=== PATIENT | female | born 1945 | race Caucasian/White ===

== ENCOUNTER → 2018-06-20 | Outpatient (CLI) | payer MEDICARE, OTHER ==
--- NOTE | 2018-06-20 13:47 | RADIOLOGY REPORT (SQ) ---
EXAM DESCRIPTION: MRI HEAD WITHOUT COMPLETED DATE/TIME: 06/20/2018 1:00 pm REASON FOR STUDY: MIGRAINES (G43.009) G43.009 MIGRAINE W/O AURA, NOT INTRACTABLE, W/O STATUS MIGRA COMPARISON: None. TECHNIQUE: Multiplanar imaging includes non-contrasted T1, T2, FLAIR, and Diffusion with ADC map seq uences. Images stored on PACS. LIMITATIONS: None. FINDINGS: ANATOMY: No anomalies. Normal vascular flow voids. Pituitary fossa normal. CSF SPACES: Normal in size and contour. No hemorrhage. CEREBRUM: A few high-signal intensity lesions scattered throughout the white matter on FLAIR imaging with distribution suggesting chronic micro-vascular ischemic change. Sulci and gyri normal in size a nd contour. No evidence of hemorrhage, mass or extraaxial fluid collection. POSTERIOR FOSSA: No signal alteration. No hemorrhage. No edema, masses or mass effect. Internal oliver tory canals, cerebello-pontine angles, mastoids normal. DIFFUSION: Negative for acute or sub-acute infarction. ORBITS: No masses. Globes normal. PARANASAL SINUSES: Marked chronic ethmoid and sphenoid sinus disease. OTHER: No other significant finding. IMPRESSION: MINIMAL MICROVASCULAR ISCHEMIC CHANGE. Marked chronic ethmoid and sphenoid sinus disease. EVIDENCE OF ACUTE STROKE: NO. TECHNICAL DOCUMENTATION: JOB ID: [id number] [employer]- All Rights Reserved Reading location - IP/workstation name: [email or web address]
== END ==
LOC: RAD 12:16
PROVIDERS: ATTEND Physician Assistant
DX: G43.009 Migraine without aura, not intractable, without status migrainosus (principal)
CPT/HCPCS: 70551

== ENCOUNTER → 2019-10-04 | Outpatient (CLI) | payer MEDICARE, OTHER ==
--- NOTE | 2019-10-04 13:37 | RADIOLOGY REPORT (SQ) ---
EXAM DESCRIPTION: SHOULDER LEFT 2 OR MORE VIEWS IMAGES COMPLETED DATE/TIME: 10/04/2019 1:21 pm REASON FOR STUDY: OTHER SHOULDER LESIONS, LEFT SHOULDER M75.82 OTHER SHOULDER LESIONS, LEFT SHOULDE R COMPARISON: None. NUMBER OF VIEWS: Three views. TECHNIQUE: Internal rotation, external rotation, and Y view images acquired of the left shoulder. LIMITATIONS: None. FINDINGS: MINERALIZATION: Normal. BONES: No acute fracture. No worrisome bone lesions. JOINTS: No dislocation. VISUALIZED LUNGS AND RIBS: No pneumothorax. No rib fracture. SOFT TISSUES: No radiopaque foreign body. OTHER: No other significant finding. IMPRESSION: NEGATIVE STUDY OF THE LEFT SHOULDER. NO RADIOGRAPHIC EVIDENCE OF ACUTE INJURY. TECHNICAL DOCUMENTATION: JOB ID: [id number] 2010 [employer]- All Rights Reserved Reading location - IP/workstation name: [email or web address]
== END ==
LOC: OD 13:09
PROVIDERS: ATTEND Physician Assistant
DX: M75.82 Other shoulder lesions, left shoulder (principal)

== ENCOUNTER 2020-06-12 05:22 | Day surgery (SDC) | payer MEDICARE, OTHER ==
[2020-06-07 10:30] LABS: HEMATOCRIT 37.4 % (36.0-47.0); MEAN CORPUSCULAR HEMOGLOBIN 26.7 pg (27.0-33.4); MEAN CORPUSCULAR HGB CONC 32.2 g/dL (32.0-36.0); MEAN CORPUSCULAR VOLUME 83 fl (80-97); PLATELET COUNT 329 10^3/uL (150-450); RED BLOOD COUNT 4.51 10^6/uL (3.72-5.28); WHITE BLOOD COUNT 9.5 10^3/uL (4.0-10.5)
[2020-06-07 10:39] LABS: APPEARANCE,URINE CLEAR; BILIRUBIN,URINE NEGATIVE (NEGATIVE); COLOR,URINE COLORLESS; GLUCOSE, URINE NEGATIVE (NEGATIVE); KETONES,URINE NEGATIVE (NEGATIVE); LEUKOCYTE ESTERASE,URINE TRACE (NEGATIVE); NITRITE,URINE NEGATIVE (NEGATIVE); PROTEIN,URINE NEGATIVE (NEGATIVE); URINE SPECIFIC GRAVITY 1.006; UROBILINOGEN,URINE NEGATIVE mg/dL (<2.0)
[2020-06-07 10:55] LABS: ANION GAP 8 (5-19); BLOOD UREA NITROGEN 24 mg/dL (7-20); CALCIUM 9.3 mg/dL (8.4-10.2); CARBON DIOXIDE 26 mmol/L (22-30); CHLORIDE 108 mmol/L (98-107); GLUCOSE 99 mg/dL (75-110); POTASSIUM 4.1 mmol/L (3.6-5.0)
[2020-06-07 11:02] LABS: ALCOHOL < 10 mg/dL (NONE DETECTED)
[2020-06-07 11:08] LABS: URINE AMPHETAMINES SCREEN NEGATIVE; URINE BARBITURATES SCREEN NEGATIVE; URINE BENZODIAZEPINES SCREEN NEGATIVE; URINE COCAINE SCREEN NEGATIVE; URINE MARIJUANA (THC) SCREEN NEGATIVE; URINE METHADONE SCREEN NEGATIVE; URINE PHENCYCLIDINE SCREEN NEGATIVE
--- NOTE | 2020-06-07 11:55 | EKG REPORT ---
SEVERITY:- ABNORMAL ECG - SINUS RHYTHM LEFT ATRIAL ABNORMALITY LVH WITH SECONDARY REPOLARIZATION ABNORMALITY ANTERIOR Q WAVES, POSSIBLY DUE TO LVH VS OLD ANTEROSEPTAL VT : Confirmed by: Mitchel Martinez MD 07-Jun-2020 11:55:04
--- NOTE | 2020-06-07 13:13 | RADIOLOGY REPORT (SQ) ---
EXAM DESCRIPTION: CHEST 2 VIEWS IMAGES COMPLETED DATE/TIME: 06/07/2020 12:37 pm REASON FOR STUDY: PRE OP TESTING COMPARISON: 2007 EXAM PARAMETERS: NUMBER OF VIEWS: two views TECHNIQUE: Digital Frontal and Lateral radiographic views of the chest acquired. RADIATION DOSE: NA LIMITATIONS: none FINDINGS: LUNGS AND PLEURA: Mild chronic interstitial changes. No acute infiltrate or effusion. No mass. MEDIASTINUM AND HILAR STRUCTURES: No masses or contour abnormalities. HEART AND VASCULAR STRUCTURES: Heart normal size. No evidence for failure. BONES: No acute findings. HARDWARE: None in the chest. OTHER: No other significant finding. IMPRESSION: Chronic lung changes with no acute cardiopulmonary findings. TECHNICAL DOCUMENTATION: JOB ID: [id number] 2010 [employer]- All Rights Reserved Reading location - IP/workstation name: [email or web address]
[~2020-06-12 05:22] MED LIST: CEFAZOLIN 2 GM/D5W RTU 2 GM/50 ML RTUPB IV PRN
[2020-06-12] MEDS ORDERED: CEFAZOLIN 2 GM/D5W RTU 2 GM/50 ML RTUPB IV ONE (05:55)
[2020-06-12] MEDS ORDERED: FENTANYL CITRATE INJ/PF 100 MCG/2 ML AMPUL ONE (06:44)
[2020-06-12] MEDS ORDERED: MIDAZOLAM 2 MG/2 ML INJ ONE (06:44)
[2020-06-12] MEDS ORDERED: HYDROMORPHONE HCL INJ/PF 2 MG/ML AMPULE ONE (06:44)
[2020-06-12] MEDS ORDERED: LIDOCAINE 2% INJ (20 MG/ML) 20 ML MDV ONE (06:45)
[2020-06-12] MEDS ORDERED: PROPOFOL INJ 200 MG/20 ML VIAL IV ONE (06:45)
[2020-06-12] MEDS ORDERED: BUPIVACAINE HCL 0.5 % INJ/PF 30 ML SDV ONE (07:10)
[2020-06-12] MEDS ORDERED: BUPIVACAINE INJ/PF LIPOSOME/PF 266 MG/20 ML SDV ONE (07:10)
[2020-06-12] MEDS ORDERED: HEPARIN SOD (PORCINE) 1,000 UNIT/ML 10 ML VIAL ONE (07:10)
[2020-06-12] MEDS ORDERED: ACETAMINOPHEN 1,000 MG/100 ML RTUPB IV ONE (07:21)
[2020-06-12] MEDS ORDERED: SUMATRIPTAN SUCCINATE INJ/PF 6 MG/0.5 ML SDV SUBCUT PRN (07:44)
[2020-06-12] MEDS ORDERED: CARVEDILOL PHOSPHATE 10 MG PO SCH (07:45)
[2020-06-12] MEDS ORDERED: EPHEDRINE SULFATE INJ 50 MG/1 ML AMPULE ONE (07:55)
[2020-06-12] MEDS ORDERED: BACITRACIN INJ 50,000 UNIT VIAL ONE (08:19)
[2020-06-12] MEDS ORDERED: MORPHINE SULFATE 10 MG/ML INJ IV PRN ×2 (08:31→11:35)
[2020-06-12] MEDS ORDERED: FENTANYL CITRATE INJ/PF 100 MCG/2 ML AMPUL IV PRN ×3 (08:31)
[2020-06-12] MEDS ORDERED: ONDANSETRON HCL INJ/PF 4 MG/2 ML SDV IV PRN ×2 (08:31→11:36)
[2020-06-12] MEDS ORDERED: DIPHENHYDRAMINE HCL 50 MG/ML VIAL IV PRN ×2 (08:31→11:36)
[2020-06-12] MEDS ORDERED: MEPERIDINE HCL/PF INJ 25 MG/1 ML DISP.SYRIN IV PRN (08:31)
[2020-06-12] MEDS ORDERED: VANCOMYCIN HCL INJ 1000 MG VIAL ONE ×2 (09:57→10:41)
[2020-06-12] MEDS ORDERED: (PENDING PHARMACY ID) (Losartan Potassium [Losartan Potassium] 100 MG Tablet) PO SCH (10:00)
[2020-06-12] MEDS ORDERED: PRAVASTATIN SODIUM 20 MG PO SCH (10:00)
--- NOTE | 2020-06-12 10:54 | Operative Report ---
Operative Report DATE OF SURGERY: 06/12/20 PREOPERATIVE DIAGNOSIS: L3-4 and L4-5 severe lumbar stenosis with neurogenic cl audication. L4-5 spondylolisthesis with lumbar radiculitis. Degenerative disc disease lumbar spine. Back pain POSTOPERATIVE DIAGNOSIS: L3-4 and L4-5 severe lumbar stenosis with neurogenic claudication. L4-5 spondylolisthesis with lumbar radiculitis. Degenerative disc disease lumbar spine. Back pain. Status post L3-4 and L4-5 central decompression and bilateral foraminotomies OPERATION: L3-4 and L4-5 central decompression and bilateral foraminotomies SURGEON: CRISSY SUMMERS 1ST DISC SANDER: JASON MARCUM ANESTHESIA: GA COMPLICATIONS: None ESTIMATED BLOOD LOSS: 450 cc of blood loss patient was given back 250 cc of Cell Saver PROCEDURE: The patient is brought into the room and placed under anesthesia and had a Moore catheter placed at the beginning of the case which is removed at the end of the case. The patient received 2 g of Ancef and a surgical timeout was performed. The patient was placed in the prone position on the Fredi table with a Chai frame attachment. The Chai frame was turned up to open up the interspaces posteriorly. Lateral C-arm fluoroscopy is used to noam the appropriate levels. After completion of prepping and draping having SCDs and a warming blanket placed on the patient already, a midline incision is carried down electrocautery was used to maintain hemostasis. The lumbodorsal fascia is incised on both sides of spinous processes down onto the lamina of L3 down to L5. The spinous processes of L3 and L4 are resected. Then the microscope was brought in under the microscope the bur is used to remove a significant part of the lamina and then regular and pneumatic Kerrisons are utilized to carry out central decompression and lateral recess decompression at L3-4 and L4-5. After carrying out the decompression the extent of the decompression was verified using nerve hooks and the lateral C-arm fluoroscopy to verify that L3- L5 was decompressed centrally. No epidural bleeders or cerebrospinal fluid leakage is noted. The wound is then irrigated with a liter of bacitracin irrigation. The wound is reapproximated the fascia with 0 Vicryl and then the subcu with 2-0 Vicryl in a subcuticular closure with 3-0 Monocryl. The wounds dressed in benzoin Steri- Strips 4 x 4 and tape. Please note this procedure could not have been done without the assistance of Jason Marcum working under the microscope carry out decompression and protecti ng the dura.
[2020-06-12] MEDS ORDERED: RINGERS SOLUTION,LACTATED 1,000 ML IV PRN (11:31)
[2020-06-12] MEDS ORDERED: ACETAMINOPHEN 325 MG TABLET PO PRN (11:35)
[2020-06-12] MEDS ORDERED: ACETAMINOPHEN SOLN 325 MG/10.15 ML UDCUP PO PRN (11:36)
[2020-06-12] MEDS ORDERED: PROMETHAZINE HCL 25 MG TABLET PO PRN (11:36)
[2020-06-12] MEDS ORDERED: PROMETHAZINE HCL INJ 25 MG/1 ML VIAL IM PRN (11:36)
[2020-06-12] MEDS ORDERED: ACETAMINOPHEN 650 MG SUPP.RECT PR PRN (11:36)
[2020-06-12] MEDS ORDERED: MAGNESIUM HYDROXIDE SUSP 30 ML UDCUP PO PRN (11:36)
[2020-06-12] MEDS ORDERED: DIPHENHYDRAMINE HCL 25 MG CAPSULE PO PRN (11:36)
[2020-06-12] MEDS ORDERED: METHOCARBAMOL 750 MG TABLET PO SCH (11:45)
[2020-06-12] MEDS ORDERED: METHOCARBAMOL 500 MG TABLET PO PRN (11:59)
--- NOTE | 2020-06-12 12:20 | RADIOLOGY REPORT (SQ) ---
EXAM DESCRIPTION: SPINE SINGLE VIEW; NO CHG FLUORO IMAGES COMPLETED DATE/TIME: 06/12/2020 10:56 am REASON FOR STUDY: LUMBAR DECOMPRESSION MULTIPLE LEVELS ASSISTED WITH FLUORO IN OR M48.00 SPINAL BENOIT NOSIS, SITE UNSPECIFIED M47.9 SPONDYLOSIS, UNSPECIFIED Z79.899 OTHER SNF (CURRENT) DRUG THERA PY COMPARISON: None. FLUOROSCOPY TIME: 0.3 minutes 1 images saved to PACS. TECHNIQUE: Intra-operative images acquired during surgical procedure to evaluate progress. NUMBER OF IMAGES: 1 LIMITATIONS: None. FINDINGS: Image from fluoro shows 2 instruments. 1 is directed toward the L3 vertebra and the other toward the L5 vertebra. IMPRESSION: Lumbar decompression with fluoro. Refer to operative note for further information. COMMENT: Quality ID [id number]: Final reports for procedures using fluoroscopy that document radiation exp osure indices, or exposure time and number of fluorographic images (if radiation exposure indices are not available) Please consult full operative report of the attending physician for description of the procedure. TECHNICAL DOCUMENTATION: JOB ID: [id number] 2010 [employer]- All Rights Reserved Reading location - IP/workstation name: [email or web address]
--- NOTE | 2020-06-12 12:20 | RADIOLOGY REPORT (SQ) ---
EXAM DESCRIPTION: SPINE SINGLE VIEW; NO CHG FLUORO IMAGES COMPLETED DATE/TIME: 06/12/2020 10:56 am REASON FOR STUDY: LUMBAR DECOMPRESSION MULTIPLE LEVELS ASSISTED WITH FLUORO IN OR M48.00 SPINAL BENOIT NOSIS, SITE UNSPECIFIED M47.9 SPONDYLOSIS, UNSPECIFIED Z79.899 OTHER INTERMEDIATE (CURRENT) DRUG THERA PY COMPARISON: None. FLUOROSCOPY TIME: 0.3 minutes 1 images saved to PACS. TECHNIQUE: Intra-operative images acquired during surgical procedure to evaluate progress. NUMBER OF IMAGES: 1 LIMITATIONS: None. FINDINGS: Image from fluoro shows 2 instruments. 1 is directed toward the L3 vertebra and the other toward the L5 vertebra. IMPRESSION: Lumbar decompression with fluoro. Refer to operative note for further information. COMMENT: Quality ID [id number]: Final reports for procedures using fluoroscopy that document radiation exp osure indices, or exposure time and number of fluorographic images (if radiation exposure indices are not available) Please consult full operative report of the attending physician for description of the procedure. TECHNICAL DOCUMENTATION: JOB ID: [id number] 2010 [employer]- All Rights Reserved Reading location - IP/workstation name: [email or web address]
[2020-06-12] MEDS: AMLODIPINE BESYLATE 5 MG TABLET PO SCH (13:15)
[2020-06-12] MEDS: LOSARTAN POTASSIUM 50 MG TABLET PO SCH (13:16)
[2020-06-12] MEDS ORDERED: METHOCARBAMOL INJ/PF 1000 MG/10 ML SDV IV ONE (14:00)
[2020-06-12] MEDS ORDERED: CEFAZOLIN 2 GM/D5W RTU 2 GM/50 ML RTUPB IV SCH (14:00)
[2020-06-12] MEDS ORDERED: ONDANSETRON HCL INJ/PF 4 MG/2 ML SDV ONE (14:29)
[2020-06-12] MEDS ORDERED: GLYCOPYRROLATE 1 MG/5 ML VIAL ONE (14:29)
[2020-06-12] MEDS ORDERED: PHENYLEPHRINE HCL INJ/PF 10 MG/1 ML SDV ONE (14:29)
[2020-06-12] MEDS ORDERED: ROCURONIUM BROMIDE INJ 50 MG/5 ML VIAL IV ONE (14:29)
[2020-06-12] MEDS ORDERED: DEXAMETHASONE SOD PHOSPHATE INJ 4 MG/1 ML VIAL ONE (14:29)
[2020-06-12] MEDS ORDERED: METHOCARBAMOL 750 MG TABLET PO PRN (15:34)
[2020-06-12] MEDS: FUROSEMIDE 20 MG TABLET PO SCH (15:37)
[2020-06-12] MEDS: ASPIRIN 81 MG TABLET, CHEWABLE PO SCH (15:37)
[2020-06-12] MEDS: HYDROXYCHLOROQUINE SULFATE 200 MG TABLET PO SCH ×2 (15:38→18:18)
[2020-06-12] MEDS: CEFAZOLIN SODIUM 2 GM in DEXTROSE 5%-WATER 100 ML IV SCH (16:01)
[2020-06-12] MEDS: SENNOSIDES/DOCUSATE 8.6-50 MG 1 EACH TABLET PO SCH (18:25)
[2020-06-12] MEDS: OXYCODONE HCL IR 5 MG TABLET PO PRN (19:33)
[2020-06-13] MEDS: CEFAZOLIN SODIUM 2 GM in DEXTROSE 5%-WATER 100 ML IV SCH (02:04)
[2020-06-13] MEDS: OXYCODONE HCL IR 5 MG TABLET PO PRN (06:15)
[2020-06-13 07:17] LABS: HEMATOCRIT 30.2 % (36.0-47.0); HEMOGLOBIN 9.7 g/dL (12.0-15.5); MEAN CORPUSCULAR HEMOGLOBIN 26.9 pg (27.0-33.4); MEAN CORPUSCULAR VOLUME 84 fl (80-97); PLATELET COUNT 269 10^3/uL (150-450); RED BLOOD COUNT 3.58 10^6/uL (3.72-5.28); RED CELL DISTRIBUTION WIDTH 15.1 % (11.5-14.0); WHITE BLOOD COUNT 10.5 10^3/uL (4.0-10.5)
[2020-06-13] MEDS: FUROSEMIDE 20 MG TABLET PO SCH (07:25)
[2020-06-13] MEDS: AMLODIPINE BESYLATE 5 MG TABLET PO SCH (09:43)
[2020-06-13] MEDS: LOSARTAN POTASSIUM 50 MG TABLET PO SCH (09:43)
[2020-06-13] MEDS: ASPIRIN 81 MG TABLET, CHEWABLE PO SCH (09:43)
[2020-06-13] MEDS: SENNOSIDES/DOCUSATE 8.6-50 MG 1 EACH TABLET PO SCH (09:43)
[2020-06-13] MEDS: HYDROXYCHLOROQUINE SULFATE 200 MG TABLET PO SCH (09:46)
[2020-06-13 10:10] VITALS: BP 129/59
--- NOTE | 2020-06-13 11:31 | PDOC DISCHARGE SUMMARY ---
General - Admit/Disc Date/PCP Admission Date/Primary Care Provider: 06/12/2020 Discharge Date: 06/13/20 - Discharge Diagnosis Final Diagnosis: Spinal stenosis L3-L5: S/P Lumbar decompression L3-L5 - Assessment Summary: Patient was admitted 06/12/2020 following Lumbar decompression, please see op note for details. - Additional Information Resuscitation Status: Full Code Discharge Diet: Regular Discharge Activity: No Driving, No Lifting Over 10 Pounds, No Lifting/Push/Pulling, No tub bath Referrals: CRISSY SUMMERS MD [ASSOCIATE] - 06/21/20 9:20 am Home Medications: Carvedilol Phosphate [Coreg CR 10 mg Ext. Release Capsule] 10 mg PO HSP PRN 12/21/12 Hydroxychloroquine Sulfate [Plaquenil 200 mg Tablet] 200 mg PO BID 12/21/12 Pravastatin Sodium [Pravachol] 20 mg PO DAILY 12/21/12 Sumatriptan Succinate [Imitrex] 6 mg SQ PRN PRN 12/21/12 Amlodipine Besylate [Norvasc 5 mg Tablet] 5 mg PO DAILY 06/11/20 Furosemide [Lasix 20 mg Tablet] 20 mg PO QAM 06/11/20 Losartan Potassium 100 mg PO DAILY 06/11/20 Aspirin 1 tab PO DAILY 06/12/20 Acetaminophen [Tylenol 650 mg Supp] 650 mg NM Q4HP PRN supp.rect 06/13/20 Methocarbamol [Robaxin 750 mg Tablet] 750 mg PO Q8HP PRN tablet 06/13/20 Normal Saline [Saline Flush 2.5 ml Monoject Prefil Syrin] 2.5 ml IV Q8 disp.syrin 06/13/20 Ondansetron HCl/Pf [Zofran Inj/Pf 4 mg/2 ml Sdv] 4 mg IV Q6HP PRN vial 06/13/20 Oxycodone HCl [Oxy-Ir 5 mg Tablet] 5 mg PO Q4HP PRN tablet 06/13/20 History of Present Illiness History of Present Illness: LUIS CARLOS LOPEZ is a 74 year old female Hospital Course Hospital Course: Patient was admited on 06/12/2020 following lumbar decompression, see op note for details. No complications were noted during the hospital course. patient was able to meet PT goals. Physical Exam Vital Signs: Temp Pulse Resp BP Pulse Ox 97.6 F 80 18 133/64 H 93 06/13/20 07:37 06/13/20 03:34 06/13/20 03:34 06/13/20 03:34 06/13/20 07:43 Intake & Output 06/12/20 06/13/20 06/14/20 06:59 06:59 06:59 Intake Total 0 3787 Output Total 650 Balance 0 3137 Weight 81.65 kg 75 kg General appearance: PRESENT: no acute distress, cooperative Ear exam: ABSENT: bleeding, drainage Mouth exam: PRESENT: moist Pulses: PRESENT: +2 pedal pulses bilateral Rectal exam: PRESENT: deferred Extremities exam: ABSENT: calf tenderness, joint swelling Musculoskeletal exam: PRESENT: ambulatory, other - lumbar spine: dressing is intact. bloody drainage is noted. Neurological exam: PRESENT: alert, altered, awake Skin exam: PRESENT: dry, normal color Results Laboratory Results: WBC 10.5 10^3/uL (4.0-10.5) 06/13/20 06:00 RBC 3.58 10^6/uL (3.72-5.28) L 06/13/20 06:00 Hgb 9.7 g/dL (12.0-15.5) L 06/13/20 06:00 Hct 30.2 % (36.0-47.0) L 06/13/20 06:00 MCV 84 fl (80-97) 06/13/20 06:00 MCH 26.9 pg (27.0-33.4) L 06/13/20 06:00 MCHC 32.0 g/dL (32.0-36.0) 06/13/20 06:00 RDW 15.1 % (11.5-14.0) H 06/13/20 06:00 Plt Count 269 10^3/uL (150-450) 06/13/20 06:00 Sodium 141.5 mmol/L (137-145) 06/07/20 09:22 Potassium 4.0 mmol/L (3.6-5.0) 06/12/20 06:54 Chloride 108 mmol/L (98-107) H 06/07/20 09:22 Carbon Dioxide 26 mmol/L (22-30) 06/07/20 09:22 Anion Gap 8 (5-19) 06/07/20 09:22 BUN 24 mg/dL (7-20) H 06/07/20 09:22 Creatinine 0.81 mg/dL (0.52-1.25) 06/07/20 09:22 Est GFR ( Amer) > 60 (>60) 06/07/20 09:22 Est GFR (MDRD) Non-Af > 60 (>60) 06/07/20 09:22 Glucose 99 mg/dL (75-110) 06/07/20 09:22 Calcium 9.3 mg/dL (8.4-10.2) 06/07/20 09:22 Urine Color COLORLESS 06/07/20 09:00 Urine Appearance CLEAR 06/07/20 09:00 Urine pH 6.0 (5.0-9.0) 06/07/20 09:00 Ur Specific [place] 1.006 06/07/20 09:00 Urine Protein NEGATIVE mg/dL (NEGATIVE) 06/07/20 09:00 Urine Glucose (UA) NEGATIVE mg/dL (NEGATIVE) 06/07/20 09:00 Urine Ketones NEGATIVE mg/dL (NEGATIVE) 06/07/20 09:00 Urine Blood NEGATIVE (NEGATIVE) 06/07/20 09:00 Urine Nitrite NEGATIVE (NEGATIVE) 06/07/20 09:00 Urine Bilirubin NEGATIVE (NEGATIVE) 06/07/20 09:00 Urine Urobilinogen NEGATIVE mg/dL (<2.0) 06/07/20 09:00 Ur Leukocyte Esterase TRACE (NEGATIVE) H 06/07/20 09:00 Urine WBC (Auto) 2 /HPF 06/07/20 09:00 Squamous Epi Cells Auto 1 /HPF 06/07/20 09:00 Urine Ascorbic Acid NEGATIVE (NEGATIVE) 06/07/20 09:00 Urine Opiates Screen NEGATIVE 06/07/20 09:00 Urine Methadone Screen NEGATIVE 06/07/20 09:00 Ur Barbiturates Screen NEGATIVE 06/07/20 09:00 Ur Phencyclidine Scrn NEGATIVE 06/07/20 09:00 Ur Amphetamines Screen NEGATIVE 06/07/20 09:00 U Benzodiazepines Scrn NEGATIVE 06/07/20 09:00 Urine Cocaine Screen NEGATIVE 06/07/20 09:00 U Marijuana (THC) Screen NEGATIVE 06/07/20 09:00 Serum Alcohol < 10 mg/dL (NONE DETECTED) 01/22/21 09:22 COVID-19 Source See comment 06/07/20 10:11 COVID-19 ([facility]) Not Detected (Not Detect) 06/07/20 10:11 Impressions: Chest X-Ray 06/07/20 00:00 IMPRESSION: Chronic lung changes with no acute cardiopulmonary findings. Fluoroscopy 06/12/20 00:00 IMPRESSION: Lumbar decompression with fluoro. Refer to operative note for further information. Spine X-Ray 06/12/20 00:00
[2020-06-14] MEDS ORDERED: BISACODYL 5 MG TABEC PO PRN (05:00)
[2020-06-14] MEDS ORDERED: BISACODYL 10 MG SUPP.RECT PR PRN (05:00)
== END 2020-06-13 11:48 | disposition home or self-care (01) ==
LOC: OROUT 05:22 → 4S 12:20 → OROUT 06-13 11:48
PROVIDERS: ATTEND Orthopaedic Surgery
DX: M48.062 Spinal stenosis, lumbar region with neurogenic claudication (principal); M51.16 Intervertebral disc disorders with radiculopathy, lumbar region; M43.16 Spondylolisthesis, lumbar region; I11.0 Hypertensive heart disease with heart failure; I50.9 Heart failure, unspecified; M06.9 Rheumatoid arthritis, unspecified; M32.9 Systemic lupus erythematosus, unspecified; M70.61 Trochanteric bursitis, right hip; R26.9 Unspecified abnormalities of gait and mobility; Z79.899 Other long term (current) drug therapy; Z01.812 Encounter for preprocedural laboratory examination; Z20.822 Contact with and (suspected) exposure to COVID-19; Z79.82 Long term (current) use of aspirin; Z87.891 Personal history of nicotine dependence; Z90.49 Acquired absence of other specified parts of digestive tract
CPT/HCPCS: 63047; 93005; 36415 ×2; 80307 ×2; 84132; 85027 ×2; 80048; 81001; 87070; 71046; 72020; 94799; 93010; 97530 ×2; 97116; 97162; 00630; C1776; U0003; A9270 ×14; J2250; J3490 ×8; J0690 ×3; J1100; J3010; J1644; J2800; J1170; J2370; J2405; J7060 ×2; J7120; J2704; J3370; J0131; C9290; C9803; 87635